=== PATIENT | female | born 1950 | race Caucasian/White ===

== ENCOUNTER 2017-04-29 17:35 | Inpatient (IN) | payer MEDICARE, OTHER ==
[~2017-04-29] VITALS: Ht 154.9 cm; Wt 70.7 kg
[2017-04-29 18:00] LABS: PO2 Arterial 38.3 mmHg (80-100)
[2017-04-29] MEDS ORDERED: VERAPAMIL ER120 MG PO (18:02)
[2017-04-29] MEDS ORDERED: NORT25 PO (18:02)
[2017-04-29] MEDS ORDERED: LOSA25 PO (18:02)
[2017-04-29] MEDS ORDERED: LEVSOD150 PO (18:02)
[2017-04-29] MEDS ORDERED: NADO40 PO (18:02)
[2017-04-29] MEDS ORDERED: AZIT250 PO (18:02)
[2017-04-29] MEDS ORDERED: ESTROGEN-METHY1 EAC1 PO (18:02)
[2017-04-29] MEDS ORDERED: PREG75 PO (18:03)
[2017-04-29 18:26] LABS: BASOPHILS ABSOLUTE AUTO 0.01 K/mm3 (0.00-0.23); BASOPHILS PERCENT AUTO 0 % (0-2); EOSINOPHILS PERCENT AUTO 0 % (0-6); Hematocrit 49.7 % (33.0-51.0); Mean Corpuscular HGB 30.7 pg (26.0-34.0); Mean Corpuscular HGB Conc 32.2 g/dL (31.5-36.5); Mean Corpuscular Volume 95 fL (80-100); Mean Platelet Volume 11.2 fL (9.1-12.4); Platelet Count 287 K/mm3 (150-400); RDW Coefficient Variation 12.6 % (11.7-14.2); RDW Standard Deviation 44.7 fL (35.1-46.3); Red Blood Cell Count 5.22 M/mm3 (3.80-5.20); White Blood Cell Count 7.08 K/mm3 (4.00-11.30)
[2017-04-29 18:37] LABS: IMMATURE GRAN ABSOLUTE AUTO 0.03 K/mm3 (0.00-0.10); IMMATURE GRAN PERCENT AUTO 0 % (0-1); LYMPHOCYTES ABSOLUTE AUTO 1.73 K/mm3 (0.84-5.20); LYMPHOCYTES PERCENT AUTO 24 % (21-46); MONOCYTES ABSOLUTE AUTO 0.83 K/mm3 (0.16-1.47); MONOCYTES PERCENT AUTO 12 % (4-13); NEUTROPHILS ABSOLUTE AUTO 4.48 K/mm3 (1.96-9.15); NEUTROPHILS PERCENT AUTO 63 % (41-73)
[2017-04-29 18:48] LABS: Alanine Aminotransfer (ALT/SGP 32 U/L (12-78); Albumin, Blood 3.2 g/dL (3.4-5.0); Albumin/Globulin Ratio 0.7 (0.8-1.8); Alk Phos 69 U/L (50-136); Anion Gap 4 mmol/L (6-16); Aspartate Aminotrans (AST/SGOT 58 U/L (12-37); Bilirubin, Total 0.4 mg/dL (0.1-1.0); Blood Urea Nitrogen 32 mg/dL (8-24); Bun/Creatinine Ratio 34.2 (12.0-20.0); CO2, Blood 33 mmol/L (21-32); Calcium, Blood 8.2 mg/dL (8.5-10.1); Chloride, Blood 98 mmol/L (98-108); Creatinine, Blood 0.94 mg/dL (0.40-1.00); Globulin, Blood 4.4 g/dL (2.2-4.0); Glomerular Filtration Rate >60 (60-); Glucose, Blood 198 mg/dL (70-99); Magnesium, Blood 2.1 mg/dL (1.6-2.4); Potassium, Blood 4.8 mmol/L (3.5-5.5); Sodium, Blood 135 mmol/L (136-145); Total Protein, Blood 7.6 g/dL (6.4-8.2); Troponin I 0.025 ng/mL (0.000-0.040)
[2017-04-29 19:23] LABS: PO2 Arterial 97.7 mmHg (80-100)
[2017-04-29 19:24] LABS: PCO2 Arterial 75.6 mmHg (35-45); pH Blood Arterial 7.24 (7.35-7.45)
[2017-04-29 22:01] LABS: PCO2 Arterial 73.1 mmHg (35-45); PO2 Arterial 62.7 mmHg (80-100); pH Blood Arterial 7.25 (7.35-7.45)
[2017-04-30 00:47] LABS: PCO2 Arterial 63.1 mmHg (35-45); PO2 Arterial 61.9 mmHg (80-100); pH Blood Arterial 7.29 (7.35-7.45)
[2017-04-30 04:04] LABS: BASOPHILS ABSOLUTE AUTO 0.01 K/mm3 (0.00-0.23); BASOPHILS PERCENT AUTO 0 % (0-2); EOSINOPHILS PERCENT AUTO 0 % (0-6); Hematocrit 44.8 % (33.0-51.0); Hemoglobin 14.6 g/dL (11.5-16.0); Mean Corpuscular HGB 31.3 pg (26.0-34.0); Mean Corpuscular HGB Conc 32.6 g/dL (31.5-36.5); Mean Corpuscular Volume 96 fL (80-100); Mean Platelet Volume 11.2 fL (9.1-12.4); Platelet Count 236 K/mm3 (150-400); RDW Coefficient Variation 12.8 % (11.7-14.2); RDW Standard Deviation 45.8 fL (35.1-46.3); Red Blood Cell Count 4.67 M/mm3 (3.80-5.20); White Blood Cell Count 3.98 K/mm3 (4.00-11.30)
[2017-04-30 04:10] LABS: IMMATURE GRAN ABSOLUTE AUTO 0.02 K/mm3 (0.00-0.10); IMMATURE GRAN PERCENT AUTO 1 % (0-1); LYMPHOCYTES ABSOLUTE AUTO 1.01 K/mm3 (0.84-5.20); LYMPHOCYTES PERCENT AUTO 25 % (21-46); MONOCYTES ABSOLUTE AUTO 0.17 K/mm3 (0.16-1.47); MONOCYTES PERCENT AUTO 4 % (4-13); NEUTROPHILS ABSOLUTE AUTO 2.77 K/mm3 (1.96-9.15); NEUTROPHILS PERCENT AUTO 70 % (41-73)
[2017-04-30 04:22] LABS: Bun/Creatinine Ratio 33.3 (12.0-20.0); Calcium, Blood 7.8 mg/dL (8.5-10.1); Creatinine, Blood 1.05 mg/dL (0.40-1.00); Potassium, Blood 4.8 mmol/L (3.5-5.5)
[2017-04-30 05:07] LABS: PCO2 Arterial 53.9 mmHg (35-45); PO2 Arterial 76.9 mmHg (80-100); pH Blood Arterial 7.34 (7.35-7.45)
[2017-04-30 08:02] LABS: Adenovirus Not Detected (NOT DETECT); Bordetella pertussis Not Detected (NOT DETECT); Chlamydophila pneumoniae Not Detected (NOT DETECT); Coronavirus 229E Not Detected (NOT DETECT); Coronavirus HKU1 Not Detected (NOT DETECT); Coronavirus NL63 Not Detected (NOT DETECT); Coronavirus OC43 Not Detected (NOT DETECT); Human Metapneumovirus Not Detected (NOT DETECT); Human Rhinovirus/Enterovirus Not Detected (NOT DETECT); Influenza A/2009-H1 Not Detected (NOT DETECT); Influenza A/H1 Not Detected (NOT DETECT); Influenza A/H3 Not Detected (NOT DETECT); Mycoplasma pneumoniae Not Detected (NOT DETECT); Parainfluenza Virus 1 Not Detected (NOT DETECT); Parainfluenza Virus 2 Not Detected (NOT DETECT); Parainfluenza Virus 3 Not Detected (NOT DETECT); Parainfluenza Virus 4 Not Detected (NOT DETECT); Respiratory Syncytial Virus Not Detected (NOT DETECT)
[2017-04-30 09:32] LABS: Influenza A Not Detected (NOT DETECT); Influenza B Detected (NOT DETECT)
[2017-05-01 04:37] LABS: BASOPHILS ABSOLUTE AUTO 0.01 K/mm3 (0.00-0.23); BASOPHILS PERCENT AUTO 0 % (0-2); EOSINOPHILS PERCENT AUTO 0 % (0-6); Hematocrit 44.9 % (33.0-51.0); Hemoglobin 14.1 g/dL (11.5-16.0); Mean Corpuscular HGB 30.4 pg (26.0-34.0); Mean Corpuscular HGB Conc 31.4 g/dL (31.5-36.5); Mean Corpuscular Volume 97 fL (80-100); Mean Platelet Volume 11.5 fL (9.1-12.4); Platelet Count 228 K/mm3 (150-400); RDW Coefficient Variation 12.7 % (11.7-14.2); RDW Standard Deviation 45.1 fL (35.1-46.3); Red Blood Cell Count 4.64 M/mm3 (3.80-5.20); White Blood Cell Count 5.49 K/mm3 (4.00-11.30)
[2017-05-01 04:45] LABS: IMMATURE GRAN ABSOLUTE AUTO 0.03 K/mm3 (0.00-0.10); IMMATURE GRAN PERCENT AUTO 1 % (0-1); LYMPHOCYTES PERCENT AUTO 22 % (21-46); MONOCYTES ABSOLUTE AUTO 0.45 K/mm3 (0.16-1.47); MONOCYTES PERCENT AUTO 8 % (4-13); NEUTROPHILS PERCENT AUTO 69 % (41-73)
[2017-05-01 05:01] LABS: Anion Gap 6 mmol/L (6-16); Blood Urea Nitrogen 32 mg/dL (8-24); Bun/Creatinine Ratio 49.1 (12.0-20.0); CO2, Blood 28 mmol/L (21-32); Chloride, Blood 108 mmol/L (98-108); Creatinine, Blood 0.65 mg/dL (0.40-1.00); Glomerular Filtration Rate >60 (60-); Glucose, Blood 181 mg/dL (70-99); Sodium, Blood 142 mmol/L (136-145)
[2017-05-02] MEDS ORDERED: BUDE.5 NEB (12:11)
[2017-05-02] MEDS ORDERED: PRED20 PO (12:14)
[2017-05-02] MEDS ORDERED: OSEL75CA PO (12:16)
[2017-05-02] MEDS ORDERED: ALBU90OI6 INH (12:17)
[2017-05-02] MEDS ORDERED: AMLO5 PO (12:18)
[2017-05-02] MEDS ORDERED: Pulmicort Flex90 MCG INH (12:37)
== END 2017-05-02 13:07 | disposition home or self-care (01) | DRG 193 ==
LOC: ER 17:35 → PCU 19:04
PROVIDERS: Emergency Medicine; Hospitalist; Internal Medicine; Internal Medicine Pulmonary Disease
PROC: 5A09457 Assistance with Respiratory Ventilation, 24-96 Consecutive Hours, Continuous Positive Airway Pressure (ICD-10-PCS; principal; 2017-04-29)
DX: J10.1 Influenza due to other identified influenza virus with other respiratory manifestations (principal); J96.01 Acute respiratory failure with hypoxia; J96.02 Acute respiratory failure with hypercapnia; E87.2 Acidosis; J44.0 Chronic obstructive pulmonary disease with (acute) lower respiratory infection; J44.1 Chronic obstructive pulmonary disease with (acute) exacerbation; I10 Essential (primary) hypertension; G62.9 Polyneuropathy, unspecified; F17.210 Nicotine dependence, cigarettes, uncomplicated; Z79.890 Hormone replacement therapy
CPT/HCPCS: 36415; 36600; 71045; 80048; 80053; 82803; 83605; 83690; 83735; 83880; 84145; 84484; 85025; 87040; 87486; 87581; 87633; 87798; 93005; 93010; 94640; 94660; 94762; 96365; 96375; 99285; J0456; J0696; J1650; J2920; J3480; J7030; J7050